=== PATIENT | male | born 1995 | race Caucasian/White ===

== ENCOUNTER → 2024-12-25 | Outpatient (CLI) | payer OTHER ==
--- NOTE | 2024-12-25 17:25 | XR ---
EXAMINATION TYPE: XR foot complete RT, XR ankle complete RT DATE OF EXAM: 12/25/2024 5:06 PM COMPARISON: None CLINICAL INDICATION: Male, 29 years old with history of M25.571, M79.671, pain TECHNIQUE: XR foot complete RT, XR ankle complete RT examined in the AP, oblique, and lateral project ions. FINDINGS: Soft tissue swelling present. No evidence of any acute osseous pathology. Calcaneal plantar spurring is present. Calcaneal Achilles enthesophyte. Accessory ossicle is present near the cuboid. Bipartite lateral sesamoid of the first digit. IMPRESSION: Soft tissue swelling without evidence of acute fracture. [facility], , 12/25/2024 5:23 PM
== END | disposition home or self-care (01) ==
LOC: RADXRMAIN 16:39
PROVIDERS: ATTEND Family Medicine
DX: M25.571 Pain in right ankle and joints of right foot (principal); M79.671 Pain in right foot; M79.89 Other specified soft tissue disorders